=== PATIENT | female | born 1980 | race Caucasian/White ===

== ENCOUNTER 2020-04-25 13:23 | Emergency (ER) | payer MEDICAID ==
[~2020-04-25] VITALS: Ht 177.8 cm; Wt 104.3 kg
[2020-04-25] MEDS ORDERED: HYDR-500 PO (13:47)
[2020-04-25] MEDS ORDERED: CITA40TA22 PO (13:47)
[2020-04-25 13:48] VITALS: BP_SYST 143
--- NOTE | 2020-04-25 13:53 | NUR ---
PATIENT RETURNED TO WAITING AREA PENDING BED AVAILABILITY; STAT EKG AND ERMD ADVISED
--- NOTE | 2020-04-25 14:04 | NUR ---
PATIENT TO ER #4 WITH BOARD CATCHER, SAO2 AND ABP
[2020-04-25] MEDS ORDERED: KETOROLAC TROMETHAMINE 60 MG/2 ML VIAL IM ONE (14:30)
[2020-04-25 14:34] LABS: BASOPHILS # (AUTO) 0.1 K/uL (0.0-0.2); BASOPHILS % (AUTO) 0.6 % (0.0-2.0); EOSINOPHILS # (AUTO) 0.2 K/uL (0.0-0.4); EOSINOPHILS % (AUTO) 2.3 % (0.0-4.0); HEMATOCRIT 44.5 % (36-48); LYMPHOCYTES # (AUTO) 2.8 K/uL (1.0-5.5); MEAN CORPUSCULAR HEMOGLOBIN 29 pg (27-31); MEAN CORPUSCULAR HGB CONC 34 % (32-36); MEAN CORPUSCULAR VOLUME 87 fL (79.0-98.0); MONOCYTES # (AUTO) 0.6 K/uL (0.0-1.0); NEUTROPHILS % (AUTO) 65.1 % (40.0-70.0); PLATELET COUNT (AUTO) 241 K/uL (130-430); RED BLOOD CELL COUNT(AUTO) 5.11 MIL/uL (4.2-6.2); RED CELL DISTRIBUTION WIDTH 13.5 % (9.0-15.0); WHITE BLOOD COUNT (AUTO) 10.7 K/uL (4.8-10.8)
[2020-04-25] MEDS ORDERED: ONDANSETRON 4 MG ODT TAB PO ONE (14:45)
[2020-04-25 14:47] LABS: ANION GAP 10 (5-15); CALCIUM 9.3 mg/dL (8.4-11.0); CHLORIDE 105 mmol/L (98-107); GLUCOSE 106 mg/dL (70-99); POTASSIUM 4.1 mmol/L (3.5-5.1); SODIUM SERUM 141 mmol/L (136-145); UREA NITROGEN, BLOOD 12 mg/dL (8-21)
[2020-04-25 14:49] LABS: GFR AFRICAN AMERICAN 103 mL/min (>90)
[2020-04-25 15:46] VITALS: BP_SYST 128
--- NOTE | 2020-04-25 15:50 | NUR ---
REASSESSMENT; PATIENT STATES MARGINAL IMPROVEMENT IN SYMPTOMS; PREPARATIONS TO DISCHARGE
--- NOTE | 2020-04-25 15:52 | NUR ---
Patient given written and verbal discharge instructions and verbalizes understanding. ER MD discussed with patient the results and treatment provided. Patient in stable condition. ID arm band removed. IV catheter removed intact and dressing applied, no active bleeding. Rx ofATIVAN given. Patient educated on pain management and to follow up with PMD. Pain Scale . Opportunity for questions provided and answered. Medication side effect fact sheet provided.
== END 2020-04-25 15:46 | disposition home or self-care (01) ==
LOC: SED 13:23
DX: R07.89 Other chest pain (principal); I95.9 Hypotension, unspecified
CPT/HCPCS: 36415; 71045; 80048; 84484; 85025; 93005; 96372; 99285; J1885; Q0162